=== PATIENT | female | born 1970 | race Hispanic/Latino ===

== ENCOUNTER → 2018-04-22 | Outpatient (CLI) | payer BC ==
--- NOTE | 2018-04-22 08:24 | Diagnostic Imaging Report ---
PROCEDURE:X-RAY RIGHT KNEE, THREE OR MORE VIEWS COMPARISON:None. INDICATIONS:right knee pain x 2-3 months/no trauma FINDINGS: The bones are well-mineralized. No evidence of fracture or malalignment. There are minimal tricompartmental degenerative changes with mild joint space narrowing and bony osteophyte formation. There is no evidence of a joint effusion. CONCLUSION: No acute osseous abnormality. Minimal tricompartmental osteoarthritis. Dictated by: SAMSON LANDON M.D. on 04/22/2018 at 8:31 Electronically approved by: SAMSON LANDON M.D. on 04/22/2018 at 8:31
== END ==
LOC: RAD 07:56
PROVIDERS: ATTEND Family Medicine
DX: M25.561 Pain in right knee (principal)